=== PATIENT | male | born 1975 | race Caucasian/White ===

== ENCOUNTER 2018-05-10 19:58 | Emergency (ER) | payer SELFPAY ==
--- NOTE | 2018-05-10 20:09 | ER Report ---
History and Physical Time Seen By MD: 20:09 Hx. of Stated Complaint: presents c/o bilateral abdominal pain and nausea, states "Crohn's flareup." HPI/ROS CHIEF COMPLAINT: crohns flareup HISTORY OF PRESENT ILLNESS: This is a 42 year old male. He is here visiting from [place] for his 's surgery. He has crohns and flareup today with abdominal pain and vomiting, but no bloody stools. Usually will take acid reducing medicine, and phenergan to control vomiting. He usually has medications with him, but these were left at home. No fevers or chills. No chest pain or shortness of breath. Allergies: Coded Allergies: meperidine (Verified Adverse Reaction, Mild, nausea/vomiting, 05/10/18) Home Meds Active Scripts Promethazine Hcl (PROMETHAZINE HCL) 25 Mg Tablet, 25 MG PO Q8H PRN for NAUSEA/VOMITING, #20 TAB 0 Refills Prov:MARY PHELPS MD 05/10/18 Reported Medications Aloe Vera (ALOE VERA) 25 Mg Capsule, 25 MG PO, CAPSULE 05/10/18 Omeprazole (OMEPRAZOLE) 40 Mg Capsule.dr, 40 MG PO QDAY, CAP 05/10/18 Reviewed Nurses Notes: Yes Hx Substance Use Disorder: Yes (OCCASIONALLY MARIJUANA) Hx Alcohol Use: No Constitutional Vital Sign - Last 24 Hours 05/10/18 05/10/18 05/10/18 05/10/18 19:58 20:00 20:02 20:05 Temp 98.5 Pulse ??? 115 Resp 18 B/P (MAP) 150/131 (137) 163/105 (124) 163/105 Pulse Ox 94 O2 Delivery Room Air 05/10/18 05/10/18 05/10/18 05/10/18 20:13 20:28 20:43 20:58 Pulse 99 93 79 79 Resp 38 11 20 23 Pulse Ox 95 95 91 88 O2 Delivery Room Air Room Air Room Air Room Air 05/10/18 05/10/18 05/10/18 21:08 21:18 21:33 Pulse 82 79 B/P (MAP) 164/104 (124) Pulse Ox 91 95 O2 Delivery Room Air Room Air Physical Exam General Appearance: The patient is alert. Acute distress due to nausea and pain. Eyes: Pupils are equal, round. No pallor, injection or icterus. ENT: Mucous membranes are moist. Normal oral mucosa. Posterior oropharynx is normal. Neck: Supple and non tender. Respiratory: Lungs are clear to auscultation. Cardiovascular: Regular rate and rhythm. No murmurs, gallops or rubs. Normal capillary refill. Gastrointestinal: Abdomen is soft, diffuse pain and tenderness. Non-distended. No masses or organomegaly. Normal active bowel sounds. Neurological: Alert and oriented x3. DIFFERENTIAL DIAGNOSIS: After history and physical exam, differential diagnosis was considered for abdominal pain, nausea and vomiting, similar to prior flare ups. Medical Decision Making Data Points Result Diagram: 05/10/18201005/10/182010 Laboratory Hematology Test 05/10/18 20:11 Red Blood Count 5.80 M/uL (4.00-5.60) Mean Corpuscular Volume 87.3 fL (80.0-96.0) Mean Corpuscular Hemoglobin 30.6 pg (26.0-33.0) Mean Corpuscular Hemoglobin Concent 35.0 g/dL (32.0-36.0) Red Cell Distribution Width 13.1 % (11.5-14.5) Mean Platelet Volume 7.7 fL (7.2-11.1) Neutrophils (%) (Auto) 74.0 % (39.4-72.5) Lymphocytes (%) (Auto) 16.5 % (17.6-49.6) Monocytes (%) (Auto) 8.8 % (4.1-12.4) Eosinophils (%) (Auto) 0.2 % (0.4-6.7) Basophils (%) (Auto) 0.5 % (0.3-1.4) Nucleated RBC Relative Count (auto) 0.1 /100WBC Neutrophils # (Auto) 8.1 K/uL (2.0-7.4) Lymphocytes # (Auto) 1.8 K/uL (1.3-3.6) Monocytes # (Auto) 1.0 K/uL (0.3-1.0) Eosinophils # (Auto) 0.0 K/uL (0.0-0.5) Basophils # (Auto) 0.1 K/uL (0.0-0.1) Nucleated RBC Absolute Count (auto) 0.01 K/uL Sodium Level 136 mmol/L (137-145) Potassium Level 3.4 mmol/L (3.5-5.0) Chloride Level 98 mmol/L (98-107) Carbon Dioxide Level 25 mmol/L (22-30) Blood Urea Nitrogen 17 mg/dl (9-21) Creatinine 0.90 mg/dl (0.66-1.25) Glomerular Filtration Rate Calc > 60.0 Random Glucose 154 mg/dl (75-110) Calcium Level 10.1 mg/dl (8.4-10.2) Total Bilirubin 0.7 mg/dl (0.2-1.3) Aspartate Amino Transf (AST/SGOT) 24 U/L (0-35) Alanine Aminotransferase (ALT/SGPT) 34 U/L (0-56) Alkaline Phosphatase 73 U/L (0-126) Total Protein 8.4 g/dl (6.3-8.2) Albumin 4.6 g/dl (3.5-5.0) Chemistry Test 05/10/18 20:11 White Blood Count 11.0 k/uL (4.5-11.0) Red Blood Count 5.80 M/uL (4.00-5.60) Hemoglobin 17.7 g/dL (14.0-18.0) Hematocrit 50.7 % (42.0-52.0) Mean Corpuscular Volume 87.3 fL (80.0-96.0) Mean Corpuscular Hemoglobin 30.6 pg (26.0-33.0) Mean Corpuscular Hemoglobin Concent 35.0 g/dL (32.0-36.0) Red Cell Distribution Width 13.1 % (11.5-14.5) Platelet Count 398 K/uL (150-450) Mean Platelet Volume 7.7 fL (7.2-11.1) Neutrophils (%) (Auto) 74.0 % (39.4-72.5) Lymphocytes (%) (Auto) 16.5 % (17.6-49.6) Monocytes (%) (Auto) 8.8 % (4.1-12.4) Eosinophils (%) (Auto) 0.2 % (0.4-6.7) Basophils (%) (Auto) 0.5 % (0.3-1.4) Nucleated RBC Relative Count (auto) 0.1 /100WBC Neutrophils # (Auto) 8.1 K/uL (2.0-7.4) Lymphocytes # (Auto) 1.8 K/uL (1.3-3.6) Monocytes # (Auto) 1.0 K/uL (0.3-1.0) Eosinophils # (Auto) 0.0 K/uL (0.0-0.5) Basophils # (Auto) 0.1 K/uL (0.0-0.1) Nucleated RBC Absolute Count (auto) 0.01 K/uL Glomerular Filtration Rate Calc > 60.0 Calcium Level 10.1 mg/dl (8.4-10.2) Total Bilirubin 0.7 mg/dl (0.2-1.3) Aspartate Amino Transf (AST/SGOT) 24 U/L (0-35) Alanine Aminotransferase (ALT/SGPT) 34 U/L (0-56) Alkaline Phosphatase 73 U/L (0-126) Total Protein 8.4 g/dl (6.3-8.2) Albumin 4.6 g/dl (3.5-5.0) ED Course/Re-evaluation Clinical Indication for ER IV: Hydration, IV Access ED Course Improved with 2 liters of normal saline, phenergan 12.5mg IV and Protonix 40mg IV. Decision to Disposition Date: May 10, 2018 Decision to Disposition Time: 21:45 Depart Departure Latest Vital Signs Vital Signs Date Time Temp Pulse Resp B/P (MAP) Pulse Ox O2 Delivery O2 Flow Rate FiO2 05/10/18 21:33 79 95 Room Air 05/10/18 21:08 164/104 (124) 05/10/18 20:58 23 05/10/18 20:05 98.5 Impression: Primary Impression: Crohns disease Condition: Improved Disposition: HOME OR SELF-CARE New Scripts Promethazine Hcl (PROMETHAZINE HCL) 25 Mg Tablet 25 MG PO Q8H PRN for NAUSEA/VOMITING, #20 TAB 0 Refills Prov: MARY PHELPS MD 05/10/18 Patient Instructions: Crohn Disease (ED) Additional Instructions: Phenergan 25mg every 8 hours as needed for nausea or vomiting. Problem Qualifiers Primary Impression: Crohns disease Gastrointestinal tract location: unspecified location Digestive disease complication type: unspecified complication Qualified Codes: K50.919 - Crohn's disease, unspecified, with unspecified complications [facility] MD May 10, 2018 20:09
[2018-05-10] MEDS ORDERED: ALOE25CA PO (20:17)
[2018-05-10] MEDS ORDERED: OMEP40CA48 PO (20:17)
[2018-05-10] MEDS ORDERED: PANTOPRAZOLE SOD 40 MG IV VIAL IVP ONE (20:20)
[2018-05-10] MEDS ORDERED: NS(*) 0.9% 1000 ML BAG 1,000 ML IV ONE ×2 (20:20→21:10)
[2018-05-10] MEDS ORDERED: PROMETHAZINE 25 MG/ML 1 ML AMP IVP ONE (20:20)
[2018-05-10 20:46] LABS: PLATELET COUNT, AUTOMATED 398 K/uL (150-450)
[2018-05-10 21:08] VITALS: BP 164/104
[2018-05-10] MEDS ORDERED: PROMETHAZINE HCL 25 MG TAB TH 2 TAB/BOTTLE PO ONE (21:45)
[2018-05-10] MEDS ORDERED: PROM-110 PO (21:47)
== END 2018-05-10 21:54 | disposition home or self-care (01) ==
LOC: ER 20:30
DX: K50.919 Crohn's disease, unspecified, with unspecified complications (principal)
CPT/HCPCS: 85025; 96361; 96374; 96375; 99284; C9113; J2550; J7030; 82040; 82247; 82310; 82374; 82435; 82565; 82947; 84075; 84132; 84155; 84295; 84450; 84460; 84520